=== PATIENT | female | born 1985 | race Caucasian/White ===

== ENCOUNTER 2025-05-11 11:53 | Emergency (ER) | payer OTHER, SELFPAY ==
--- OUTSIDE RECORDS SUMMARY | 2025-04-21 13:45 | XMS_ITS | Encounter Summary ---
[facility] Address [address] [place] [address] Care Team Providers Care Inorganic Chemist Name Role Phone Tushar Pierce APRN Primary Care Provider + Reason for Visit * Reason Comments Gynecologic Exam Encounter Details Date Type Department Care Team (Late st Contact Info) Description 04/21/2025 1:45 PM EDT Office Visit [facility] OBGYN [address] [place] [phone] Kindra Grijalva DYE HOUSE SUPERVISOR [address] [facility] [address] [place] [address] Encounter for gynecological examination with abnormal finding (Primary Dx); Vaginal odor; Screening for STDs (sexually transmitted diseases) Social History Tobacco Use Types Packs/Day Years Used Date Smoking Tobacco: Former Cigarettes 0.3 2.6 0 07/31/2002 - 07/31/2004 Passive Smoke Exposure: Past Smokeless Tobacco: Never Comments:Per Rachel, never Alcohol Use Standard Drinks/Week Comments Never 0 (1 standard drink = 0.6 oz pur e alcohol) AUDIT-C Answer Date Recorded Q1: How often do you have a drink containing alc ohol? Monthly or less 04/21/2024 Q2: How many drinks containi ng alcohol do you have on a typical day when you are drinking? 1 or 2 04/21/2024 Q3: How often do you have si x or more drinks on one occasion? Less than monthly 04/21/2024 PHQ-2 Answer Date Recorded Retired PHQ-9: Brief Depression Severity Measure Score 0 01/06/2023 Greer Depression Scale Answer Date Recorded Greer Depression Scale Total 9 04/02/2020 The thought of harming myself has occurred to me . Never 04/02/2020 Abuse Screen Answer Date Recorded Feels Unsafe at Home or Work/School no 04/21/2024 Feels Threatened by Someone no 04/01 Does Anyone Try to Keep You From Having Contact with Others or Doing Things Outside Your Home? no 04/21/2024 Physical Signs of Abuse Present no 04/21/2024 Housing Stability Answer Date Recorded Current Living Arrangements home 04/01 Potentially Unsafe Housing Conditions Not on suzan e 04/21/2024 Disabilities Answer Date Recorded Difficulty Concentrating, Remembering or Making Decisions no 04/21/2024 Difficulty Managing Errands Independently no 04/21/2024 PHQ-2 Answer Date Recorded Patient Health Questionnaire-2 Score 0 01/06/2025 Comments No Sex and Gender Information Value Date Recorded Sex Assigned at Female 01/05/2025 8:36 PM EDT Legal Sex Female 12:10 PM EDT Gender Identity Not on file Sexual Orientation Straight 01/05/2025 8 :36 PM EDT 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 Gynecologic Annual Exam Note Gynecologic Exam Subjective HPI Estephania Wilkinson is a 39 y.o. female who presents for annual well woman exam as a established patient. There were no changes to her medical or surgical history since her last visit.. No LMP recorded (lmp unknown). Patient has had an implant. Her periods are absent secondary to control. The flow is absent. She reports dysmenorrhea is mild occurring throughout cycle. Marital Status: . She is sexually active. She has not had new partners.. STD testing recommendations have been explained to the patient and she does desire STD testing. The patient would like to discuss the following complaints today: vaginal odor- denies other s/s of vaginitis; has tried OTC boric acid for 4 days, no changes with soaps/detergents/fragrances, symptoms resolved for approx 3-5 days and then returned, wants to discuss hysterectomy or BTL. Night sweatsfor approx. 2-3 years. Intermittent bilateral swelling and brown breast discharge around the time of monthly cycle that has been going on for approx 2-3 years. 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 Insertion date: mirena 05/04/2020 Desires to: discuss other contraception Thromboembolic Disease: none History of migraines: no Age of menarche: 13 History of STD: yes Trich while 2019 Last Pap : 01/06/23. Results: negative. HPV: unknown . 04/29/21 HPV Neg 01/09/23 cervical polyp Neg Last Completed Pap Smear Awaiting Completion PAP SMEAR (Every 3 Years) Order placed this encounter 04/21/2025 Order placed for LIQUID-BASED PAP SMEAR WITH HPV GENOTYPING REGARDLESS OF INTERPRETATION([facility]) by Kindra Grijalva APRN 01/06/2023 LIQUID-BASED PAP SMEAR, [facility] ([facility]) 04/02/2020 SCANNED - PAP SMEAR History of abnormal Pap smear: no Gardasil status:unsure if she received the vaccine Family history of uterine, colon, breast, or ovarian cancer: no Performs monthly Self-Breast Exam: yes Exercises Regularly:no Feelings of Anxiety or Depression: yes - anxiety and depression Tobacco Usage?: No Current Outpatient Medications: buPROPion XL (Wellbutrin XL) 150 MG 24 hr tablet, Take 1 tablet by mouth Daily., Disp: 30 tablet, Rfl: 5 hydrOXYzine (ATARAX) 25 MG tablet, Take 1 tablet by mouth 3 (Three) Times a Day As Needed for Anxiety., Disp: 60 tablet, Rfl: 5 levonorgestrel (Mirena, 52 MG,) 20 MCG/24HR IUD, 1 each by Intrauterine route 1 (One) Time., Disp: , Rfl: loratadine (CLARITIN) 10 MG tablet, Take 1 tablet by mouth Daily., Disp: 90 tablet, Rfl: 1 phentermine (Adipex-P) 37.5 MG tablet, Take 1 tablet by mouth Every Morning Before Breakfast., Disp: 30 tablet, Rfl: 2 promethazine (PHENERGAN) 25 MG suppository, Insert 1 suppository into the rectum Every 6 (Six) Hours As Needed for Nausea or Vomiting. Not with Reglan, Disp: 10 suppository, Rfl: 1 sertraline (ZOLOFT) 100 MG tablet, Take 1 tablet by mouth Every Night., Disp: 30 tablet, Rfl: 5 traZODone (DESYREL) 50 MG tablet, Take 1 tablet by mouth Every Night., Disp: 30 tablet, Rfl: 5 busPIRone (BUSPAR) 5 MG tablet, Take 1-2 tablets PO 2-3 times daily, Disp: 90 tablet, Rfl: 5 NON FORMULARY, Take 2 each by mouth Daily., Disp: , Rfl: Patient denies the need for medication refills today. OB History 2 Para 1 Term 1 0 AB 1 Living 1 SAB 1 IAB 0 Ectopic 0 Molar 0 Multiple 0 Live Births 1 Health Maintenance Topic Date Due Annual Gynecologic Pelvic and Breast Exam 04/03/2021 INFLUENZA VACCINE 02/28/2025 ANNUAL PHYSICAL 05/06/2025 LIPID PANEL 08/01/2025 PAP SMEAR 01/06/2026 TDAP/TD VACCINES (3 - Td or Tdap) 12/07/2033 HEPATITIS C SCREENING Completed Pneumococcal Vaccine 0-49 Aged Out HEMOGLOBIN A1C Discontinued Past Medical History: Diagnosis Date Abdominal pain LLQ-acute cramping pain; starts prior to menses; resolves at end of menses ADHD (attention deficit hyperactivity disorder) Anxiety Bronchitis Depression Dyslipidemia 02/04/202101/2021: HDL 32, LDL 102 Dysmenorrhea radiates to back and down legs Endometriosis has strong family h/o Gestational diabetes Hiatal hernia History of ear infections Irregular menses Kidney stone Menorrhagia Obesity Sinusitis Trichomonas vaginitis this Vaginal odor Past Surgical History: Procedure Laterality Date ANAL FISSURECTOMY 07/20/2020 SECTION N/A 03/19/2020 Procedure: SECTION PRIMARY; Surgeon: Erma Bowers MD; Location: [facility]; Service: Obstetrics/Gynecology; Laterality: N/A; CHOLECYSTECTOMY INTRAUTERINE DEVICE INSERTION 05/04/2020 WISDOM TOOTH EXTRACTION The additional following portions of the patient's history were reviewed and updated as appropriate: allergies, current medications, past family history, past medical history, past social history, past surgical history, and problem list. Review of Systems Constitutional: Negative. HENT: Negative. Eyes: Negative. Respiratory: Negative. Cardiovascular: Negative. Gastrointestinal: Negative. Endocrine: Positive for heat intolerance (night sweats). Genitourinary: Positive for breast discharge (bilateral breast swelling with intermittent brown discharge during time of cycle). Vagina odor Musculoskeletal: Negative. Skin: Negative. Allergic/Immunologic: Negative. Neurological: Negative. Hematological: Negative. Psychiatric/Behavioral: Negative. All other systems reviewed and are negative. I have reviewed and agree with the HPI, ROS, and historical information as entered above. Kindra Grijalva, DYE HOUSE SUPERVISOR Objective BP 110/64 Ht 165.1 cm (65 ) Wt 90.3 kg (199 lb) LMP (LMP Unknown) BMI 33.12 kg/m?? Physical Exam Vitals and nursing note reviewed. Exam conducted with a crimper assembler present. Constitutional: General: She is awake. She is not in acute distress. Appearance: Normal appearance. She is well-developed. She is not ill-appearing, toxic-appearing or diaphoretic. HENT: Head: Normocephalic and atraumatic. Mouth/Throat: Mouth: Mucous membranes are moist. Pulmonary: Effort: Pulmonary effort is normal. No tachypnea, respiratory distress or retractions. Chest: Chest wall: No mass. Breasts: Right: Normal. No mass, nipple discharge, skin change or tenderness. Left: Normal. No mass, nipple discharge, skin change or tenderness. Abdominal: General: There is no distension. Palpations: Abdomen is soft. Abdomen is not rigid. There is no mass. Tenderness: There is no abdominal tenderness. There is no guarding or rebound. Hernia: No hernia is present. Genitourinary: General: Normal vulva. Exam position: Lithotomy position. Labia: Right: No rash, tenderness or lesion. Left: No rash, tenderness or lesion. Vagina: Normal. No vaginal discharge or lesions. Cervix: Normal. No cervical motion tenderness, discharge, lesion or cervical bleeding. Uterus: Normal. Not enlarged, not fixed and not tender. Adnexa: Right adnexa normal and left adnexa normal. Right: No mass or tenderness. Left: No mass or tenderness. Rectum: Normal. No external hemorrhoid. Comments: Clear thin discharge Musculoskeletal: Cervical back: Normal range of motion. Lymphadenopathy: Upper Body: Right upper body: No axillary adenopathy. Left upper body: No axillary adenopathy. Skin: General: Skin is warm and dry. Neurological: Mental Status: She is alert and oriented to person, place, and time. Psychiatric: Attention and Perception: Attention normal. Mood and Affect: Mood normal. Speech: Speech normal. Behavior: Behavior normal. Behavior is cooperative. Thought Content: Thought content normal. Cognition and Memory: Cognition normal. Judgment: Judgment normal. Assessment and Plan Problem List Items Addressed This Visit None Visit Diagnoses Encounter for gynecological examination with abnormal finding - Primary Vaginal odor Relevant Orders LIQUID-BASED PAP SMEAR WITH HPV GENOTYPING REGARDLESS OF INTERPRETATION ([facility]) Screening for STDs (sexually transmitted diseases) Relevant Orders LIQUID-BASED PAP SMEAR WITH HPV GENOTYPING REGARDLESS OF INTERPRETATION ([facility]) MESS ATTENDANT CREW annual well woman exam. Reviewed pap guidelines. Pap today with std, bv, yeast testing due to complaints. Reviewed monthly self breast exams. Instructed to call with lumps, pain, or breast discharge. Reviewed BMI and weight loss as preventative health measures. Reviewed exercise as a preventative health measures. Smoking cessation encouraged. Resources reviewed. (See above for full cessation details). No breast abnormalities today-instructed pt to call when breast discharge/swelling occur and come in same day to be fully evaluated since it is not happening today. Patient desires tubal ligation-will follow up with Dr. Robinson Grijalva APRN 04/21/2025 documented in this encounter Plan of Treatment Upcoming Encounters Date Type Department Care Team (Late st Contact Info) Description 06/12/2025 1:15 PM EST Office Visit [facility] OBGYN [address] [phone] Tyree Song APRN [address] [place] [address] 07/02/2025 9:30 AM EST Office Visit [facility] PRIMARY [facility]ARE [address] [place] [address] Tushar Pierce, DYE HOUSE SUPERVISOR [address] [facility] [address] [place] [address] documented as of this encounter Procedures Procedure Name Priority Date/Time Associated Diagnosis Comments LIQUID-BASED PAP SMEAR WITH HPV GENOTYPING REGARDLESS OF INTERPRETATION, [facility] ([facility]) Routine 04/21/2025 6:12 PM EDT Vaginal odor Screening for STDs (sexually transmitted diseases) documented in this encounter Results * LIQUID-BASED PAP SMEAR WITH HPV GENOTYPING REGARDLESS OF INTERPRETATION ([facility]) (04/21/2025 6:12 PM EDT) Reference Lab Report FINAL MESS ATTENDANT CREW CYTOLOGY REPORT ---- DIAGNOSIS: Negative for intraepithelial lesion or malignancy Multiple factors can influence accuracy of Pap tests; therefore, screening at regular intervals is necessary for early cancer detection. ---- Adequacy SATISFACTORY FOR EVALUATION Transformation zone is present. Partially obscuring bacteria is present. Source CERVICAL/ENDOCERVI DELIO LMP None provided CLINICAL HISTORY: Routine Exam with abnormal finding, Vaginitis, IUD, Vaginal odor The pap smear is a screening test with limited sensitivity, and false negative tests results can occur. ThinPrep Pap imagined by [employer] (AI assisted system). Screened by KATHY WASHINGTON (ASCP) Neisseria Gonorrhoeae: Negative Chlamydia Trachomatis: Negative The Aptima Combo 2 assay is a target amplification nucleic acid probe test that utilizes target capture for the in vitro qualitative detection and differentiation of ribosomal RNA from Chlamydia trachomatis and Neisseria gonorrhoeae to aid in the diagnosis of chlamydial and gonococcal disease using the Power system. MDL ATOPOBIUM VAGINAE: Negative MDL BVAB2: Negative MDL CLEMENT ALBICANS: Negative MDL CLEMENT GLABRATA: Negative MDL CLEMENT PARAPSILOSIS: Negative MDL CLEMENT TROPICALIS: Negative MDL Megasphaera 1: Negative Aptima Trichomonas Vaginallis: Negative The Aptima Trichomonas vaginalis assay is an in vitro qualitative nucleic acid amplification test for the detection of ribosomal RNA to aid in the diagnosis of trichomoniasis. Aptima HPV: Negative The Aptima HPV assay is an in vitro nucleic acid amplification test for the qualitative detection of E6/E7 viral messenger RNA from 14 high risk types of HPV in cervical specimens. The high risk HPV types detected include: 16, 18, 31, 33, 35, 39, 45, 51, 52, 56, 58, 59, 66 68 04/22/2025 2:19 PM EDT [facility] ThinPrep Vial Collection / Unknown 04/21/2025 6:12 PM EDT 04/21/2025 6:12 PM EDT us Kindra Grijalva APRN PATHOLOGY/CYTOLOGY ORDERABLE S Final Result [facility]
[address] [place] [address], documented in this encounter Visit Diagnoses Diagnosis Encounter for gynecological examination with abnormal finding- Primary Vaginal odor Unspecified symptom associated with female genital organs Screening for STDs (sexually transmitted diseases) Screening examination for venereal disease documented in this encounter Additional Health Concerns Infection Onset Date Last Indicated Resolved Time Norovirus 2020 2020 documented as of this encounter Care Teams Inorganic Chemist Relationship Specialty Start Date End Date Tushar Pierce APRN [address] [facility] [address] [place] [address] PCP - General Family Medicine 09/03/24 documented as of this encounter
--- OUTSIDE RECORDS SUMMARY | 2025-05-01 11:30 | XMS_ITS | Encounter Summary ---
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 Social History Tobacco Use Types Packs/Day Years Used Date Smoking Tobacco: Former Cigarettes 0.3 2.6 0 07/31/2002 - 07/31/2004 Passive Smoke Exposure: Past Smokeless Tobacco: Never Tobacco Cessation:Counseling Given: Not Answered Comments:Per Rachel, never Alcohol Use Standard Drinks/Week [...] Brief Depression Severity Measure Score 0 01/06/2023 [place] Depression Scale Answer Date Recorded [place] Depression Scale Total 9 04/02/2020 The thought [...] Not on file Sexual Orientation Straight 01/05/2025 8: 36 PM EDT 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 Chief Complaint Patient presents with Gynecologic Exam Subjective HPI Estephania Wilkinson is a 39 y.o. female, , who presents for evaluation of odor with sexual intercourse. She does feel sore sometimes after intercourse.The discharge is none. Her symptoms have been present for 1 month(s). Additionally she has noticed no other symptoms. Pt had pap on 04/21/25 that was negative. States that symptoms feel similar to when she had ureaplasma in the past. Prior to the onset of symptoms she was not on antibiotics. She has not recently changed soaps/detergents/toilet tissue. Prior to this visit, she has used boric acid suppositories in an attempt to improve her symptoms. Sexual History She is currently sexually active. In the past year there has been NO new sexual partners. Condoms are never used. She would not like to be screened for STD's at today's exam. Current control method: IUD - Mirena. Menstrual History: No LMP recorded (lmp unknown). Patient has had an implant. In the past 6 months her cycles have been regular, predictable and occur monthly periods are absentsecondary to . Post-coital bleeding is absent. 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 History Last Pap : Last Completed Pap Smear Upcoming PAP SMEAR (Every 3 Years) Next due on 04/21/2028 04/21/2025 LIQUID-BASED PAP SMEAR WITH HPV GENOTYPING REGARDLESS OF INTERPRETATION ([facility]) 01/06/2023 LIQUID-BASED PAP SMEAR, [facility] ([facility]) 04/02/2020 SCANNED - PAP SMEAR OB History 2 Para 1 Term 1 0 AB 1 Living 1 SAB 1 IAB 0 Ectopic 0 Molar 0 Multiple 0 Live Births 1 The additional following portions of the patient's history were reviewed and updated as appropriate: allergies, current medications, past family history, past medical history, past social history, past surgical history, and problem list. Review of Systems Constitutional: Negative. Chills: vaginal odor. HENT: Negative. Eyes: Negative. Respiratory: Negative. Cardiovascular: Negative. Gastrointestinal: Negative. Endocrine: Negative. Genitourinary: Negative. Musculoskeletal: Negative. Skin: Negative. Allergic/Immunologic: Negative. Neurological: Negative. Hematological: Negative. Psychiatric/Behavioral: Negative. All other systems reviewed and are negative. I have reviewed and agree with the HPI, ROS, and historical information as entered above. Tyree Song, PIERCING MACHINE OPERATOR Objective BP 118/76 Wt 90.3 kg (199 lb) LMP (LMP Unknown) No BMI 33.12 kg/m?? Physical Exam Vitals and nursing note reviewed. Exam conducted with a lockstitch topstitcher present. Constitutional: Appearance: Normal appearance. Genitourinary: General: Normal vulva. Exam position: Lithotomy position. Labia: Right: No rash, tenderness or lesion. Left: No rash, tenderness or lesion. Vagina: Normal. No foreign body. No lesions. Cervix: Normal. No cervical motion tenderness, discharge, lesion or cervical bleeding. Uterus: Normal. Not enlarged, not fixed and not tender. Adnexa: Right adnexa normal and left adnexa normal. Right: No mass or tenderness. Left: No mass or tenderness. Rectum: Normal. No external hemorrhoid. 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 Relevant Medications doxycycline (MONODOX) 100 MG capsule NuSwab ordered Medication(s) ordered Counseling on Vaginitis provided Return PRN Tyree Song APRN 05/01/2025 documented in this encounter Plan of Treatment Upcoming Encounters Date Type Department Care Team (Late st Contact Info) Description 06/12/2025 1:15 PM EST Office Visit [facility] OBGYN [address] [phone] Tyree Song APRN [address] [facility] [address] [place] [id number] 07/02/2025 9:30 AM EST Office Visit [facility] PRIMARY [facility]ARE [address] [facility] [address] [place] [phone] Tushar Pierce APRN [address] [facility] [address] [place] [id number] documented as of this encounter Procedures Procedure Name Priority Date/Time Associated Diagnosis Comments GENITAL MYCOPLASMAS HANNA, SWAB Routine 05/01/2025 12:00 AM EDT Vaginal odor NUSWAB VG Routine 05/01/2025 12:00 AM EDT Vaginal odor documented in this encounter Results * (ABNORMAL) Genital Mycoplasmas HANNA, Swab - Swab, Endocervix, Vagina (05/01/2025 12:00 AM EDT) Mycoplasma genitalium NA Negative Negative [facility] Mycoplasma hominis Negative Negative [facility] Ureaplasma spp Positive(A) Negative [facility] Swab Combined specimen of cytologic material from endocervix, ectocervix, and vaginal fornix / Unknown 05/01/2025 05/01/2025 Comment:Swab Release to lei Gross [facility] - 05/04/2025 3:35 AM EDT Test(s) 666790-Gjdwewbsah hominis HANNA; 232334-Mhwkeanzmg spp HANNA was developed and its performance characteristics determined by [facility]. It has not been cleared or approved by the Food and Drug Administration. Performed at: - [address] [id number] Flat Surfacer: Carol Malloy MD, Phone: [phone] Tyree Song PIERCING MACHINE OPERATOR MICROBIOLOGY - GENER AL ORDERABLES Final Result [facility] (AMBULATORY) [address] [place] [address], [facility] [address] [place] [address], * NuSwab Vaginitis (VG) - Swab, Vagina (05/01/2025 12:00 AM EDT) Atopobium Vaginae Low - 0 Score [facility] BVAB 2 Low - 0 Score [facility] Megasphaera 1 Low - 0 Score [facility] Comment: Calculate total score by adding the 3 individual bacterial vaginosis (BV) marker scores together. Total score is interpreted as follows: Total score 0-1: Indicates the absence of BV. Total score 2: Indeterminate for BV. Additional clinical data should be evaluated to establish a diagnosis. Total score 3-6: Indicates the presence of BV. Laurie Albicans, HANNA Negative Negative [facility] Laurie Glabrata, HANNA Negative Negative [facility] Trichomonas vaginosis Negative Negative [facility] Swab Vaginal structure / Unknown 05/01/2025 05/01/2025 Comment:Swab Release to lei Gross [facility] (AMBUL[facility]) - 05/04/2025 3:35 AM EDT Test(s) 495253- Atopobium vaginae; 293844- BVAB 2; 375460- Megasphaera 1 was developed and its performance characteristics determined by [facility]. It has not been cleared or approved by the Food and Drug Administration. Test(s) 486647-Squxzdm albicans, HANNA; 833530-Zfxbyjh glabrata, HANNA was developed and its performance characteristics determined by [facility]. It has not been cleared or approved by the Food and Drug Administration. 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
[2025-05-11 11:59] VITALS: BP 122/79; PULSE 85; RESP 15; TEMP 36.9; O2SAT 98; BMI 32.3
--- NOTE | 2025-05-11 12:04 | ED_ITS ---
<Statement entered by Ghazala Cleveland DO - 05/11/25 16:01> I was consulted by the RAFA, and we discussed the complexity of problems being addressed. I approved the treatment plan and management plan of this patient's care in the emergency department, thus performing a substantive portion of medical decision making. Ghazala Cleveland DO Discharge Plan Disposition Patient Disposition: Home, Self-Care Prescriptions Prescriptions: New prednisone 20 mg tablet 40 mg PO DAILY 5 Days Qty: 10 0RF No Action buspirone 5 mg tablet 5 mg PO TID trazodone 50 mg tablet 50 mg PO DAILY sertraline 100 mg tablet 100 mg PO DAILY phentermine [Adipex-P] 37.5 mg tablet 37.5 mg PO DAILY Rx Instructions: must administer 30 minutes before or 1-2 hours after breakfast hydroxyzine HCl 25 mg tablet 25 mg PO TID PRN loratadine [Claritin] 10 mg tablet 10 mg PO DAILY bupropion HCl [Wellbutrin XL] 150 mg tablet extended release 24 hr 150 mg PO DAILY triamcinolone acetonide 0.1 % cream 1 applic topical TID 7 Days Qty: 15 0RF mupirocin calcium 2 % cream 1 applic topical TID Qty: 15 0RF Referrals Follow up/Referrals: Tushar Pierce APRN [Primary Care Provider, Medical] - See instructions Activity Restrictions/Add. Instructions Additional Instructions/Restrictions: Today you were evaluated in the emergency department and diagnosed with an allergic rash. Please take the prednisone with food, take it in the morning. Follow-up with your PCP within 48 hours. Return to the ED for any worsening of condition. Clinical Impressions Clinical Impression: Plant allergic contact dermatitis Instructions Patient Instructions: Contact Dermatitis Print Language Print Language: Urdu Discharge ED Provider: Ghazala Cleveland General Adult HPI General Chief complaint: Skin/Abscess/Foreign Body Stated complaint: Rash all over body. Time Seen by Provider: 05/11/25 12:02 Mode of Arrival: Ambulatory Source of Information: Patient Description of Symptoms (Recalled from ER Triage Doc. by RN): rash through out body. has a blistered area to r wrist with a dark center. pt states she was doing yard work on monday and it started. went to [facility] and has had no improvement. History of Present Illness HPI narrative: Patient is a 39-year-old female with no significant PMHx who presents to the ED for a rash since Monday. Patient states on Monday she was working out in her yard, clearing leaves and weeds, the following day developed a vesicular, pruritic rash. Related Data Home Medications ?Medication ?Instructions ?Recorded ?Confirmed bupropion HCl 150 mg 24 hr tablet, 150 mg PO DAILY 04/2405/08/25 extended release (Wellbutrin XL) buspirone 5 mg tablet 5 mg PO TID 05/08/25 5 hydroxyzine HCl 25 mg tablet 25 mg PO TID PRN 05/08/25 05/08/25 loratadine 10 mg tablet (Claritin) 10 mg PO DAILY 04/2405/08/25 phentermine 37.5 mg tablet 37.5 mg PO DAILY 05/08/25 1 (Adipex-P) sertraline 100 mg tablet 100 mg PO DAILY 05/08/2504/24 trazodone 50 mg tablet 50 mg PO DAILY 05/08/2504/24 Previous Rx's ?Medication ?Instructions ?Recorded mupirocin calcium 2 % topical cream 1 applic topical T ID #15 grams 05/08/25 triamcinolone acetonide 0.1 % 1 applic topical TID 7 d ays #15 05/08/25 topical cream grams prednisone 20 mg tablet 40 mg (2 x 20 mg) PO DAILY 5 days 05/11/25 #10 tabs Allergies Allergy/AdvReac Type Severity Reaction Status Date / Time clarithromycin (From Biaxin) Allergy Mild Hives Verified 05/08/25 10:46 [facility] Disclaimer: The information contained in this section may have been updated after the patient was seen, as this information can be updated by other users. Social History (Updated 05/08/25 @ 13:04 by Francoise Joel APRN) Smoking Status: Never smoker alcohol intake: current alcohol intake frequency: holidays/special occasions only current occupational status: previously employed Travel in the last 8 weeks?: None Have you lived/traveled outside US in past 30 days?: No Contact w/someone who lives/traveled outside US past 30 days?: No Exposure to someone with infectious disease in past 14 days?: No Do you have a fever (greater than 100.4 F or 38 C)?: No Have you tested positive for COVID-19?: No Exposed to someone with COVID-19 in past 14 days?: No Do you have a sore throat?: No Do you have a cough?: No Do you have any weakness?: No Do you have any diarrhea?: No Are you experiencing any unusual bleeding?: No Do you have any muscle aches/pain?: No Do you have any abdominal pain?: No Are you experiencing loss of taste or smell?: No ROS Obtained: Yes Systems reviewed as appropriate & no additional complaints except as documented Physical Exam General General appearance: alert Head Head exam: atraumatic Eye Eye exam: Present PERRL and EOMI Neck Neck exam: Present full ROM Respiratory Respiratory exam: Present normal lung sounds bilaterally Cardiovascular Cardiovascular exam: Present regular rate Neurological Exam Neurological exam: Present alert and oriented X3 Skin Skin exam: Present other (vesicular rash, erythema, located on right arm, left arm, chest wall, left cheek. Area on R arm is weeping from vesicles ) Medical Decision Making Medical Records Screening: Per USPSTF and CDC recommendations, given the prevalence of disease in our region, it is our hospital?s policy to screen for HIV and viral Hepatitis for all patients aged 18 and over and those with ongoing risk factors. Gilberto Inquiry Pt receiving controlled substance: No Vital Signs: 05/11/25 11:59 05/11/25 12:31 Temperature 98.4 F 98.4 F Temperature Source Oral Pulse Rate 81 Pulse Rate [Right] 85 Respiratory Rate 15 15 Blood Pressure 129/77 Blood Pressure [Right Arm] 122/79 Blood Pressure Mean [Right Arm] 93 02 Sat by Pulse Oximetry 98 Oxygen Delivery Method Room Air Orders (Tests/Meds): ED MEDICATIONS Discontinued Medications Generic Name Dose Route Start Last Admin Trade Name Freq PRN Reason Stop Dose Admin Dexamethasone Sodium Phosphate 10 mg 05/11/25 12:09 05/11/25 12:17 Dexamethasone 4mg/Ml 1ml Vial IM 05/11/25 12:10 10 mg ONCE ONE Administration Medical Decision Narrative: In summary, patient is a 39-year-old female with no significant PMHx who presents to the ED for a rash since Monday. Patient states on Monday she was working out in her yard, clearing leaves and weeds, the following day developed a vesicular, pruritic rash. She has tried bleach baths, Benadryl without any relief. Patient states that she has had poison alejandra in the past and this feels similar. No additional complaints. Upon initial evaluation patient is alert, oriented and cooperative. She is hemodynamically stable. Physical exam remarkable for vesicular, erythematous rash on her right arm, left arm, chest wall, left cheek. The area on her right arm is weeping from the vesicles. Differential diagnoses include plant contact dermatitis, other dermatitis, infectious process, other rash. Discussed with patient that we will administer steroid injection and place her on prednisone tablets that she will start tomorrow. Advised her to take the prednisone in the morning with food. Discussed to continue any [id number] Benadryl, Benadryl cream as directed. Advised her to follow-up with her PCP next week. We discussed return precautions to the ED and patient verbalized understanding. Critical Care Critical Care Time Critical Care Time: No
--- OUTSIDE RECORDS SUMMARY | 2025-05-11 12:04 | XMS_ITS | Clinical Summary ---
Author Organization [facility] Address [address] [place] [address] Phone Care Team Providers Care Supervisor Coil Winding Name Role Phone Ayan Mcconnell APRN Primary Care Physician [phone] Conditions or Problems Problem Name Problem Code Onset Date Status Entry Date Provider Comment Standard Description Annotate Body mass index (BMI) 32.0-32.9; adult Z68.32 (ICD-10-CM ) 09/27 Active 09/27 Tamia Avendano MD Body mass index [BMI] 32.0-32.9, adult Body mass index (BMI) 32.0-32.9; adult Z68.32 (ICD-10-CM ) 09/27 Correction 09/27 Tamia Avendano MD Body mass index [BMI] 32.0-32.9, adult Body mass index (BMI) 32.0-32.9; adult Z68.32 (ICD-10-CM ) 09/27 Removed 09/27 Janette Nickerson CARDIAC MONITOR TECHNICIAN Body mass index [BMI] 32.0-32.9, adult Body mass index (BMI) 34.0-34.9; adult Z68.34 (ICD-10-CM ) 12/07 Correction 12/07 Janette Nickerson CARDIAC MONITOR TECHNICIAN Body mass index [BMI] 34.0-34.9, adult Exposure to COVID-19 coronavirus 399962164 (SNOMED CT) 09/27 Active 09/27 Janette Nickerson CARDIAC MONITOR TECHNICIAN Exposure to communicable disease URI - acute 28560689 (SNOMED CT) 09/27 Active 09/27 Janette Nickerson CARDIAC MONITOR TECHNICIAN Acute upper respiratory infection Body mass index (BMI) 34.0-34.9; adult Z68.34 (ICD-10-CM ) 12/07 Removed 12/07 Cristina Mahmood APRN Body mass index [BMI] 34.0-34.9, adult Counseling for nutrition Z71.3 (ICD-10-CM ) 12/07 Inactive 12/07 Cristina Mahmood APRN Dietary counseling and surveillance Body mass index (BMI) 35.0-35.9; adult Z68.35 (ICD-10-CM ) Correction Cristina Mahmood APRN Body mass index [BMI] 35.0-35.9, adult Pharyngitis 550094810 (SNOMED CT) 12/07 Active 12/07 Cristina Mahmood APRN Pharyngitis Counseling for nutrition Z71.3 (ICD-10-CM ) Inactive Ayan Mcconnell APRN Dietary counseling and surveillance Body mass index (BMI) 35.0-35.9; adult Z68.35 (ICD-10-CM ) Removed Ayan Mcconnell APRN Body mass index [BMI] 35.0-35.9, adult Gastroenteri tis acute 51094073 (SNOMED CT) Active Ayan Mcconnell APRN Gastroenteritis Headache 76608981 (SNOMED CT) Active Ayan Mcconnell APRN Headache Medications Medication Instructions Start Date Stop Date Generic Name ND Provider GUAIFENESIN 400 MG TABS Take 1 tablet by mouth three times a day as needed for congestion, headache. guaifenesin [id number] Tamia Avendano MD SUDOGEST 12 HOUR 120 MG [id number] Take 1 tablet by mouth twice a day as needed for congestion. pseudoephedrine hcl [id number] Tamia Avendano MD PROMETHAZINE-DM 6.25-15 MG/5ML SYRP Take 5 ml by mouth every six hours as needed promethazine-dm [id number] Tamia Avendano MD Promethazine VC 6.25-5 mg/5 mL syrup Take 5 ml by mouth twice a day as needed promethazine-pheny lephrine 34450802311 Cristina Mahmood APRN ZITHROMAX 250 MG TABS take 2 tablets by mouth on first day, then one by mouth daily for 4 days. azithromycin 56607595019 Cristina Mahmood APRN LORATADINE 10 MG TABS TAKE 1 TABLET BY MOUTH EVERY DAY loratadine [id number] Cristina Mahmood SANDEE Promethazine VC 6.25-5 mg/5 mL syrup Take 5 ml by mouth twice a day as needed promethazine-pheny lephrine 06241232547 Cristina Mahmood APRN ZITHROMAX 250 MG TABS take 2 tablets by mouth on first day, then one by mouth daily for 4 days. azithromycin 38572793650 Cristina Mahmood APRN LOESTRIN FE 1.5/30 1.5-30 MG-MCG TABS Take 1 tablet by mouth once a day norethindrone-e.es tradiol-iron [id number] Laurel Mendes MA PAXIL 20 MG TABS paroxetine hcl [id number] Laurel Mendes MA ZOFRAN 8 MG ORAL TABLET 1 tablet every 8 hrs as needed for nausea or vomiting. ONDANSETRON HCL [id number] Ayan Mcconnell APRN LOESTRIN FE 1.5/30 1.5-30 MG-MCG TABS TAKE 1 TABLET BY MOUTH ONCE A DAY NORETHIN VIVIANA-ETH ESTRAD-FE [id number] Ayan Mcconnell APRN PAXIL 20 MG TABS PAROXETINE HCL [id number] Ayan Mcconnell APRN Medications Administered No information available. Allergies, Adverse Reactions, Alerts Allergy Name Reaction Description Start Date Severity Statu s Provider BIAXIN Critical Active Cristina wellington APRN LATEX Critical No Longer Active Cristina Mahmood APRN LATEX Critical No Longer Active Ayan Mcconnell BATH ATTENDANT Results Date Name Value Unit Range Flag Description Office Visit: [facility] CONGES TION RM 2 READY LABS ORDERED Strep Screen 30091 Laboratory tests ordered RAPID STREP negative Streptoc occus pyogenes DNA [Presence] in Throat by HANNA with probe detection Plan of Care Type Date Detail Pending order Patient Pay- COV ID-19 Pending order Strep Screen 878 80 Patient education Patient Educat ion Given Patient education Patient Educat ion Given Procedures Code Procedure Name Date Entry Date [facility]-[id number] Medication Reconciliation CPT-1159F Medication list docu mented in medical record CPT-1160F Review of all medica tions by a prescribing practitioner [id number] Giving encouragement to exercise [facility] [address]16 Patient Pay- COVID-19 09/27 [id number] Medication Reconciliation CPT-3075F Most recent systolic blood pressure 130-139 mm Hg CPT-3078F Most recent diastoli c blood pressure <80 mm Hg CPT-1159F Medication list docu mented in medical record CPT-1160F Review of all medica tions by a prescribing practitioner CPT-65721 Strep Screen [id number] 0 SCT-[id number] Medication Reconciliation CPT-3074F Most recent systolic blood pressure <130 mm Hg CPT-3078F Most recent diastoli c blood pressure <80 mm Hg [id number] 340B Toradol 15mg/ml Injection Inj Order Injection(s) Ordered [id number] 340B Phenergan to 50mg Injection [id number] 340B Toradol 15mg/ml Injection Vital Signs Date Name Value Unit Description BMI (Body Mass Index) 32.40 kg/m2 Bod y Mass Index (Ratio) Body Temperature 98.3 [degF] temperat ure E&M Body Temperature 36.83 Xiomara temperat ure in centigrade E&M BSA (Body Surface Area) 2.06 b alyse surface area Heart Rate 100 /min pulse rate Height 66 [in_us] height E&M Height 167.64 cm height in cent imeters E&M Weight Measured 90.91 kg weight in kilograms E&M Weight Measured 200 [lb_av] weight E& M Weight Measured 200 [lb_av] weight E& M BP Diastolic 79 mm[Hg] blood pressu re, diastolic BP Systolic 136 mm[Hg] blood pressur e, systolic Respiratory Rate 18 /min respirat ory rate E&M Immunizations No information available. Advance Directives No information available.
--- OUTSIDE RECORDS SUMMARY | 2025-05-11 12:05 | XMS_ITS | Encounter Summary ---
[facility] Address [address] [place] [address] Care Team Providers Care Wrecking Crane Engine Operator Name Role Phone Tushar Pierce APRN Primary Care Provider + Reason for Visit * Reason Comments Med Refill Encounter Details Date Type Department Care Team (Late st Contact Info) Description 11/27/2018 Refill [facility] GASTROENTEROLOGY [address] [facility] [address] [place] [address] Radames Rodriguez MD [address] [facility] [address] [place] [address] Heartburn; Gastroesophageal reflux disease, esophagitis presence not specified Social History Tobacco Use Types Packs/Day Years Used Date Smoking Tobacco: Former Smokeless Tobacco: Never Alcohol Use Standard Drinks/Week Comments No 0 (1 standard drink = 0.6 oz pur e alcohol) Comments Unknown Sex and Gender Information Value Date Recorded Sex Assigned at Female 01/05/2025 8:36 PM EDT Legal Sex Female 12:10 PM EDT Gender Identity Not on file Sexual Orientation Straight 01/05/2025 8: 36 PM EDT documented as of this encounter Plan of Treatment Upcoming Encounters Date Type Department Care Team (Late st Contact Info) Description 06/12/2025 1:15 PM EST Office Visit [facility] OBGYN [address] [facility] [address] [place] [id number] Tyree Song APRN [address] [facility] [address] [place] [address] 07/02/2025 9:30 AM EST Office Visit [facility] PRIMARY CARE [address] [place] [phone] Tushar Pierce, LITERACY SPECIALIST [address] [facility] [address] [place] [address] documented as of this encounter Visit Diagnoses Diagnosis Heartburn Gastroesophageal reflux disease, esophagitis presence not specified documented in this encounter Additional Health Concerns Infection Onset Date Last Indicated Resolved Time COVID (rule out) 01/14/2020 01/14/2020 01/21/2020 9:08 PM EDT COVID (rule out) 09/22/2020 09/23/2020 09/24/2020 7:52 AM EST C.difficile (rule out) 09/25/2020 09/25/202009/30 9:10 PM EST COVID Screen (preop/placement) 2020 2020 2020 6:21 AM EDT C.difficile (rule out) 2020 12/29/202012/29 3:48 PM EDT Norovirus 2020 2020 COVID (rule out) 05/18/2021 05/18/2021 05/25/2021 9:08 PM EDT documented as of this encounter Care Teams Wrecking Crane Engine Operator Relationship Specialty Start Date End Date Tushar Pierce, LITERACY SPECIALIST [address] [facility] [address] [place] [address] PCP - General Family Medicine 09/03/24 documented as of this encounter
--- OUTSIDE RECORDS SUMMARY | 2025-05-11 12:05 | XMS_ITS | Referral Summary ---
Author Organization [facility] ([place], [place], [place], [place]) Address [address] [place] [address] Care Team Providers Care Optics Test Technician Name Role Phone Unavailable Primary Care Provider Unavailabl e Allergies Active Allergy Reactions Criticality Noted Date Comments Clarithromycin Hives High 11/04/2017 Medications hydrOXYzine (ATARAX) 25 MG tablet Take 1 tablet (25 mg total) by mouth 3 (three) times daily. Active loratadine (CLARITIN) 10 mg tablet Take 1 tablet (10 mg total) by mouth daily. 01/02/2024 Active sertraline (ZOLOFT) 100 MG tablet Take 1 tablet (100 mg total) by mouth daily. Active traZODone (DESYREL) 50 MG tablet Take 1 tablet (50 mg total) by mouth nightly. 09/26/2023 Active Active Problems No known active problems Social History Tobacco Use Types Packs/Day Years Used Date Smoking Tobacco: Never Smokeless Tobacco: Never Tobacco Cessation:Counseling Given: Not Answered Alcohol Use Standard Drinks/Week Comments Never 0 (1 standard drink = 0.6 oz pur e alcohol) Food Insecurity Answer Date Recorded Food run out past 12 months Not on file 03/31 Food did not last past 12 months Not on file 04/18/2024 Employment Answer Date Recorded Help finding and keeping a job Not on file 0 04/18/2024 Family and Community Support Answer Alejandro e Recorded Help with Day to Day Activities Not on file 04/18/2024 Feeling Lonely or Isolated Not on file 04/18 Educational Attainment Answer Date Silvio rded Speak language other than Tajik at home Not on file 04/18/2024 Want help with school or training Not on file 04/18/2024 Substance Use Answer Date Recorded Used prescription meds for non-medical reasons N ot on file 04/18/2024 Used illegal drugs past 12 months Not on file 04/18/2024 Comments Unknown Sex and Gender Information Value Date Recorded Sex Assigned at Female 01/25/2022 8:16 PM CDT Legal Sex Female 8:16 PM CDT Gender Identity Female 01/25/2022 8:16 PM CDT Sexual Orientation Not on file Last Filed Vital Signs Vital Sign Reading Time Taken Comments Blood Pressure 103/55 04/19/2024 6:33 PM EDT Pulse 84 04/19/2024 6:33 PM EDT Temperature 36.9 C (98.5 F) 04/19/2024 2:37 PM EDT Respiratory Rate 18 04/19/2024 6:33 PM EDT Oxygen Saturation 98% 04/19/2024 6:33 PM EDT Inhaled Oxygen Concentration - - Weight 88.5 kg (195 lb) 04/19/2024 2:37 PM EDT Height 167.6 cm (5' 6 ) 04/19/2024 2:37 PM EDT Body Mass Index 31.47 04/19/2024 2:37 PM EDT Plan of Treatment Not on file Insurance [facility]
--- OUTSIDE RECORDS SUMMARY | 2025-05-11 12:05 | XMS_ITS | Clinical Summary ---
Author Organization [facility] ([place], [place], [place], [place]) Address [address] [place] [address] Care Team Providers Care Boat Tender Name Role Phone Unavailable Primary Care Provider [...] 0 04/18/2024 Family and Community Support Answer Alejandor e Recorded Help with Day to Day Activities Not on file 04/18/2024 Feeling Lonely or Isolated Not on file 04/18 Educational Attainment Answer Date Silvio rded Speak language other than Faroese at home Not on file 04/18/2024 Want [...] 04/19/2024 2:37 PM EDT Plan of Treatment Health Maintenance Due Date Last Done Comments Depression Screening (12+) 1999 HIV Screening 12/28/2002 Hepatitis C Screening 12/28/2005 Pap Smear 12/28/2008 COVID-19 VACCINE ( - 2023-2 5 season) 2025 Influenza Vaccine (#1) 2025 Tobacco Cessation Counseling and Screening (12+) 04/19/2025 04/19/2024 Lipid Panel 01/10/2027 01/11/2024 DTAP/TDAP/TD VACCINES (3 - T d or Tdap) 12/07/2033 12/08/2023, 02/03/2021 Pneumococcal Vaccine: 0-49 Years Aged Out No longer eligible b ased on patient's age to complete this topic Insurance [employer] [place]
--- OUTSIDE RECORDS SUMMARY | 2025-05-11 12:05 | XMS_ITS | Clinical Summary ---
Author Organization [facility] Address [address] [place] [address] Care Team Providers Care Mail Distribution Clerk Name Role Phone Tushar Pierce APRN Primary Care Provider + Allergies Active Allergy Reactions Criticality Noted Date Comments Clarithromycin Hives Medium 11/04/2017 Medications levonorgestrel (Mirena, 52 MG,) 20 MCG/24HR IUD 1 each by Intrauterine route 1 (One) Time. Active promethazine (PHENERGAN) 25 MG suppositoryIndica tions:Nausea and vomiting, unspecified vomiting type Insert 1 suppository into the rectum Every 6 (Six) Hours As Needed for Nausea or Vomiting. Not with Reglan 10 suppository 1 024 Active hydrOXYzine (ATARAX) 25 MG tabletIndications :KELLEY (generalized anxiety disorder) Take 1 tablet by mouth 3 (Three) Times a Day As Needed for Anxiety. 60 tablet 5 025 Active busPIRone (BUSPAR) 5 MG tabletIndications :KELLEY (generalized anxiety disorder) Take 1-2 tablets PO 2-3 times daily 90 tablet 5 025 Active phentermine (Adipex-P) 37.5 MG tabletIndications :Class 1 obesity due to excess calories without serious comorbidity with body mass index (BMI) of 31.0 to 31.9 in adult Take 1 tablet by mouth Every Morning Before Breakfast. 30 tablet 2 025 Active buPROPion XL (Wellbutrin XL) 150 MG 24 hr tabletIndications :Moderate episode of recurrent major depressive disorder Take 1 tablet by mouth Daily. 30 tablet 5 025 Active loratadine (CLARITIN) 10 MG tabletIndications :Seasonal allergies Take 1 tablet by mouth Daily. 90 tablet 1 025 Active sertraline (ZOLOFT) 100 MG tabletIndications :Recurrent major depressive disorder, in partial remission Take 1 tablet by mouth Every Night. 30 tablet 5 025 Active traZODone (DESYREL) 50 MG tabletIndications :Recurrent major depressive disorder, in partial remission Take 1 tablet by mouth Every Night. 30 tablet 5 025 Active NON FORMULARY Take 2 each by mouth Daily. 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 One refill for expedited partner treatment 14 capsule 1 025 Active metoclopramide (Reglan) 10 MG tabletIndications :Nausea and vomiting, unspecified vomiting type Take 1 tablet by mouth 4 (Four) Times a Day Before Meals & at Bedtime. Choose betw Reglan vs Zofran 30 tablet 1 024 2024 Discontin ued(Histo rical Med - Therapy completed ) ondansetron ODT (ZOFRAN-ODT) 8 MG disintegrating tabletIndications :Nausea and vomiting, unspecified vomiting type Place 1 tablet on the tongue Every 8 (Eight) Hours As Needed for Nausea or Vomiting. 30 tablet 1 025 2024 Discontin ued(Histo rical Med - Therapy completed ) Active Problems Problem Noted Date Diagnosed Date Gastroesophageal reflux disease 01/12/2024 Night sweats 01/12/2024 Enteritis, enteropathogenic E. coli 01/12/2024 Endometrial polyp 01/06/2023 Other headache syndrome 05/18/2021 Mixed hyperlipidemia 02/04/2021 Overview (02/04/2021): 01/2021: HDL 32, LDL 102 KELLEY (generalized anxiety disorder) 02/03/2021 Marijuana smoker, episodic 01/06/2021 History of gestational diabetes 01/06/2021 Obesity (BMI 30.0-34.9) 01/06/2021 Pilonidal cyst without abscess 2020 E coli bacteremia 09/25/2020 Hypokalemia 09/23/2020 Recurrent major depressive disorder, in partial remission 09/23/2020 History of pyelonephritis 09/23/2020 Previous section 03/22/2020 Family history of congenital anomaly 11/26/2019 Kidney stone 11/16/2019 Sinusitis Overview (05/18/2021): Patient has had congestion and headache with soreness discomfort over the frontal maxillary sinuses she has had a low-grade fever currently afebrile she denies blood drainage from nose or throat. The patient's current illness began approximately 1 week ago with a intermittent headache and now it is steady and she is taken several yomn-hqy-hpjnwvh medications with no relief does complain of a sore throat in addition to the pressure discomfort in the frontal and maxillary sinus areas Assessment & Plan (05/18/2021 6:22 PM EDT): Frontal and maxillary sinus discomfort currently afebrile at 98.4, with previous headache for the past week and sore throat and left ear discomfort COVID-19 screening PCR test is performed Note the rapid Covid test was negative on May 17 and this day May 18 We will treat with Z-Gabe prescription sent. Resolved Problems Problem Noted Date Diagnosed Date Resolved Date Intractable nausea and vomiting 04/21/2024 05/06/2024 Viral upper respiratory tract infection 05/18/2021 10/18/2022 Overview (05/18/2021): Patient is a headache for approximately 1 week initially intermittent but now steady with little relief with ufvf-bvc-ytfsgby medications in addition she complains of mild sore throat low-grade fever and some soreness fullness in the left ear with a maximum fever of 100.9 complaining of general body aches, she has had negative rapid Covid testing on May 17 and May 18 this day COVID-19 PCR test is performed The patient does have some soreness over the frontal and maxillary sinuses I see no obvious infection of the ear oropharynx We will treat with Z-Gabe Assessment & Plan (05/18/2021 6:24 PM EDT): Upper respiratory tract infection with associated sinusitis COVID-19 PCR test is pending We will initiate therapy with Z-Gabe Nausea vomiting and diarrhea 2020 01/06/2021 Gastroenteritis due to norovirus 2020 05/28/2021 Sepsis 09/23/2020 09/26/2020 Lactating mother 09/23/2020 01/06/2021 Intractable vomiting 09/23/2020 021 E. coli UTI (urinary tract infection) 09/23/2020 01/06/2021 Elevated glucose 09/23/2020 01/06/2021 Currently 02/26/2020 0 Single umbilical artery affe cting management of mother in [place] , antepartum 11/26/2019 03/19/2020 11/26/2019 03/19/2020 hydronephrosis in preg heather, antepartum condition 11/26/2019 03/19/2020 Kidney stone complicating pr egnancy, second trimester 11/15/2019 03/19/2020 Encounters Date Type Department Care Team Description 05/05/2025 Results Follow-Up [facility] [address] [facility] [address] [place] [phone] Tyree Song APRN 05/01/2025 11:30 AM EDT Office Visit [facility] [address] [facility] [address] [place] [phone] Tyree Song APRN Vaginal odor (Primary Dx); 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 05/01/2025 Travel 04/30/2025 Telephone [facility] [address] [facility] [address] [place] [address] Erma Bowers MD Ureaplasma spp 04/25/2025 Results Follow-Up [facility] [address] [facility] [address] [place] [address] Kindra Grijalva, COMMERCIAL CREDIT REVIEWER 04/21/2025 1:45 PM EDT Office Visit [facility] [address] [place] [address] Kindra Grijalva APRN Encounter for gynecological examination with abnormal finding (Primary Dx); Vaginal odor; Screening for STDs (sexually transmitted diseases) 04/21/2025 Travel 04/18/2025 Telephone [facility] [address] [place] [address] Kindra Grijalva APRN [facility]- MEDICAL CONCERN 02/16/2025 Refill [facility] [address] [place] [address] Kalin Yuan MD from Last 3 Months Immunizations Immunization Administration Dates Next Due Tdap 12/08/2023,02/03/2021 Family History Medical History Relation Name Comments Diabetes Father Maximilina Edson Heart attack Father Maximilian Edson Hyperlipidemia Father Maximilian Edson Hypertension Father Maximilian Edson Kidney disease Father Maximilian Edson Obesity Father Maximilian Edson Drug abuse Maternal Grandfather Drug abuse Maternal Grandmother Arthritis Mother Sylvia Gonzalez Diabetes Mother Sylvia Gonzalez Diverticulitis Mother Sylvia Gonzalez Heart attack Mother Sylvia Gonzalez Migraines Mother Sylvia Gonzalez Obesity Mother Sylvia Gonzalez Breast cancer Other family hx Deep vein thrombosis Other family hx sister age 26 on OCs Diabetes Other family hx Endometriosis Other family hx strong family hx Hypertension Other family hx Lung cancer Other family hx Stroke Other family hx Drug abuse Paternal Grandfather Heart attack Paternal Grandfather Obesity Paternal Grandfather Drug abuse Paternal Grandmother Nohemy Edson Heart attack Paternal Grandmother Nohemy Edson Kidney disease Paternal Grandmother Nohemy Edson Osteoporosis Paternal Grandmother Nohemy Edson Relation Name Status Comments Father Maximilian Edson Maternal Grandfather Maternal Grandmother Mother Sylvia Gonzalez Other family hx Paternal Grandfather Paternal Grandmother Nohemy Edson Social History Tobacco Use Types Packs/Day Years [...] Brief Depression Severity Measure Score 0 01/06/2023 [place] Depression Scale Answer Date Recorded [place] Depression Scale Total 9 04/02/2020 The thought [...] 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 Not on file Not on file Last Filed Vital Signs Vital Sign Reading Time Taken Comments Blood Pressure 118/76 05/01/2025 11:40 AM EDT Pulse 76 01/06/2025 11:21 AM EDT Temperature 36.4 C (97.5 F) 01/06/2025 11:21 AM EDT Respiratory Rate 18 04/26/2024 8:54 PM EDT Oxygen Saturation 98% 01/06/2025 11:21 AM EDT Inhaled Oxygen Concentration - - Weight 90.3 kg (199 lb) 05/01/2025 11:40 AM EDT Height 165.1 cm (5' 5 ) 04/21/2025 2:27 PM EDT Body Mass Index 33.12 04/21/2025 2:27 PM EDT Plan of Treatment Upcoming Encounters Date Type Department Care Team (Late st Contact Info) Description 06/12/2025 1:15 PM EST Office Visit [facility] [address] [facility] [address] [place] [address] Tyree Song, COMMERCIAL CREDIT REVIEWER [address] [place] [address] 07/02/2025 9:30 AM EST Office Visit [facility] [address] [place] [phone] Tushar Pierce, COMMERCIAL CREDIT REVIEWER [address] [place] [address] Health Maintenance Due Date Last Done Comments INFLUENZA VACCINE 02/28/2025 ANNUAL PHYSICAL 05/06/2025 05/06/2024 LIPID PANEL 08/01/2025 08/01/2024, 01/11/2024, 02/03/2021 Annual Gynecologic Pelvic and Breast Exam 04/22/2026 04/21/2025, 04/02/2020 PAP SMEAR 04/21/2028 04/21/2025, 01/06/2023, 04/02/2020 TDAP/TD VACCINES (3 - Td or Tdap) 12/07/2033 12/08/2023, 02/03/2021 HEPATITIS C SCREENING Completed 02/03/2021 HEMOGLOBIN A1C Discontinued 08/01/2024, 2020, 09/24/2020 Pneumococcal Vaccine 0-49 Aged Out No longer eligible based on patient's age to complete this topic Procedures Procedure Name Priority Date/Time Associated Diagnosis Comments GENITAL MYCOPLASMAS HANNA, SWAB Routine 05/01/2025 12:00 AM EDT Vaginal odor NUSWAB VG Routine 05/01/2025 12:00 AM EDT Vaginal odor LIQUID-BASED PAP SMEAR WITH HPV GENOTYPING REGARDLESS OF INTERPRETATION, [facility] (EMMY,COR,MAD) Routine 04/21/2025 6:12 PM EDT Vaginal odor Screening for STDs (sexually transmitted diseases) HEMOGLOBIN A1C Routine 08/01/2024 9:30 AM EST Elevated glucose LIPID PANEL Routine 08/01/2024 9:30 AM EST Mixed hyperlipidemia HEPATITIS C ANTIBODY Routine 02/03/2021 9:23 AM EDT Need for hepatitis C screening test SCANNED - PAP SMEAR 04/02/2020 from Last 3 Months or Most Recently Relevant to Health Maintenance Results * (ABNORMAL) Genital Mycoplasmas HANNA, Swab [...] (AMBULATORY) - 05/04/2025 3:35 AM EDT Test(s) 612613-Gicivpzblk hominis HANNA; 930750-Hpexnmtwqc spp HANNA was developed and its performance characteristics determined by [facility]. It has not been cleared or approved by the Food and Drug Administration. Performed at: 01 - [facility] [id number] Tow Picker: Carol Malloy MD, Phone: [phone] Tyree Song APRN MICROBIOLOGY - GENER AL ORDERABLES Final Result [facility] ([facility] [address] [place] [address], [facility] [address] [place] [address], [place] [phone] * NuSwab Vaginitis (VG) - Swab, Vagina [...] 05/01/2025 05/01/2025 Comment:Swab Release to lei Gross [facility] - 05/04/2025 3:35 AM EDT Test(s) 993738- Atopobium vaginae; 730995- BVAB 2; 611018- Megasphaera 1 was developed and its performance characteristics determined by [facility]. It has not been cleared or approved by the Food and Drug Administration. Test(s) 884441-Xmrrsnw albicans, HANNA; 304945-Quysqdf glabrata, HANNA was developed and its performance characteristics determined by [facility]. It has not been cleared or approved by the Food and Drug Administration. Performed at: 01 - [address] [id number] Tow Picker: Carol Malloy MD, Phone: [phone] us Tyree Song COMMERCIAL CREDIT REVIEWER MICROBIOLOGY - GENER AL ORDERABLES Final Result [facility] [address] [place] [address], [facility] [address] [place] [address], * LIQUID-BASED PAP SMEAR WITH HPV GENOTYPING REGARDLESS OF INTERPRETATION (EMMY,COR,MAD) (04/21/2025 6:12 PM EDT) Reference Lab Report FINAL EXCEPTIONAL STUDENT EDUCATION TEACHER CYTOLOGY REPORT ---- DIAGNOSIS: Negative for intraepithelial [...] results can occur. ThinPrep Pap imagined by [employer] (AI assisted system). Screened by KATHY WASHINGTON (ASCP) Neisseria Gonorrhoeae: Negative Chlamydia Trachomatis: Negative The Aptima Combo 2 assay is a target amplification nucleic acid probe test that utilizes target capture for the in vitro qualitative detection and differentiation of ribosomal RNA from Chlamydia trachomatis and Neisseria gonorrhoeae to aid in the diagnosis of chlamydial and gonococcal disease using the [employer] system. MDL ATOPOBIUM VAGINAE: Negative MDL BVAB2: Negative MDL LAURIE ALBICANS: Negative MDL LAURIE GLABRATA: Negative MDL LAURIE PARAPSILOSIS: Negative MDL LAURIE TROPICALIS: Negative MDL Megasphaera 1: Negative Aptima [...] 6:12 PM EDT 04/21/2025 6:12 PM EDT Kindra Grijalva APRN PATHOLOGY/CYTOLOGY ORDERABLE S Final Result [facility]
[address] [place] [address], [place] [phone] * Hemoglobin A1c (08/01/2024 9:30 AM EST) Hemoglobin A1C 5.20 4.80 - 5.60 % 08/01/2024 6:41 PM EST [facility] Blood Venipuncture / Unknown 08/01/2024 9:30 AM EST 08/01/2024 9:30 AM EST Narrative [facility] - 08/01/2024 6:41 PM EST Hemoglobin A1C Ranges: Increased Risk for Diabetes 5.7% to 6.4% Diabetes >= 6.5% Diabetic Goal < 7.0% us Kalin Yuan MD LAB BLOOD ORDERABLES Final R esult [facility]
[address] [place] [address], [place] [phone] * (ABNORMAL) Lipid Panel (08/01/2024 9:30 AM EST) Total Cholesterol 193 0 - 200 mg/dL 08/01/2024 6:49 PM EST [facility] Triglycerides 96 0 - 150 mg/dL 08/01/2024 6:49 PM EST [facility] HDL Cholesterol 38(L) 40 - 60 mg/dL 08/01/2024 6:49 PM EST [facility] LDL Cholesterol 137(H) 0 - 100 mg/dL 08/01/2024 6:49 PM EST [facility] VLDL Cholesterol 18 5 - 40 mg/dL 08/01/2024 6:49 PM EST [facility] LDL/HDL Ratio 3.57 08/01/2024 6:49 PM EST [facility] Blood Venipuncture / Unknown 08/01/2024 9:30 AM EST 08/01/2024 9:30 AM EST Narrative [facility] - 08/01/2024 6:49 PM EST Cholesterol Reference Ranges (U.S. Department of Health and Human Services ATP III Classifications) Desirable <200 mg/dL Borderline High 200-239 mg/dL High Risk >240 mg/dL Triglyceride Reference Ranges (U.S. Department of Health and Human Services ATP III Classifications) Normal <150 mg/dL Borderline High 150-199 mg/dL High 200-499 mg/dL Very High >500 mg/dL HDL Reference Ranges (U.S. Department of Health and Human Services ATP III Classifications) Low <40 mg/dl (major risk factor for CHD) High >60 mg/dl ('negative' risk factor for CHD) LDL Reference Ranges (U.S. Department of Health and Human Services ATP III Classifications) Optimal <100 mg/dL Near Optimal 100-129 mg/dL Borderline High 130-159 mg/dL High 160-189 mg/dL Very High >189 mg/dL us Kalin Yuan MD LAB BLOOD ORDERABLES Final R esult [facility]
[address] [place] [address], * Hepatitis C Antibody (02/03/2021 9:23 AM EDT) Hepatitis C Ab Non-Reacti ve Non-Reacti ve 02/03/2021 9:16 PM EDT [facility] Blood Venipuncture / Unknown 02/03/2021 9:23 AM EDT 02/03/2021 9:23 AM EDT Narrative [facility] - 02/03/2021 9:16 PM EDT Results may be falsely decreased if patient taking Biotin. us Kalin Yuan MD LAB BLOOD ORDERABLES Final R esult [facility]
[address] [place] [address], [place] [phone] * SCANNED - PAP SMEAR (04/02/2020) Erma Bowers MD CHART REVIEW TABS Final Resul t from Last 3 Months or Most Recently Relevant to Health Maintenance Additional Health Concerns Infection Onset Date Last Indicated Norovirus 2020 2020 Insurance [address] [place] [phone] [facility] [place] Advance Directives * CPR (Attempt to Resuscitate) (Latest Code Status on File) Date Activated Date Inactivated Comments 04/21/2024 2:15 PM 04/22/2024 9:10 AM Question Answer Comments Code Status (Patient has no pulse and is not breathing): CPR (Attempt to Resuscitate) Medical Interventions (Patie nt has pulse or is breathing): Full Support * CPR (Attempt to Resuscitate) Date Activated Date Inactivated Comments 2020 3:40 AM 12/30/2020 3:21 PM Question Answer Comments Code Status (Patient has no pulse and is not breathing): CPR (Attempt to Resuscitate) Medical Interventions (Patie nt has pulse or is breathing): Full Level Of Support Discussed With: Patient * CPR (Attempt to Resuscitate) Date Activated Date Inactivated Comments 09/23/2020 11:23 PM 09/26/2020 3:15 PM Question Answer Comments Code Status (Patient has no pulse and is not breathing): CPR (Attempt to Resuscitate) Medical Interventions (Patie nt has pulse or is breathing): Full * CPR (Attempt to Resuscitate) Date Activated Date Inactivated Comments 03/19/2020 6:42 PM 03/22/2020 5:24 PM Question Answer Comments Code Status (Patient has no pulse and is not breathing): CPR (Attempt to Resuscitate) Medical Interventions (Patie nt has pulse or is breathing): Full * CPR (Attempt to Resuscitate) Date Activated Date Inactivated Comments 03/18/2020 7:23 PM 03/19/2020 6:42 PM Question Answer Comments Code Status (Patient has no pulse and is not breathing): CPR (Attempt to Resuscitate) Medical Interventions (Patie nt has pulse or is breathing): Full Care Teams Mail Distribution Clerk Relationship Specialty Start Date End Date Tushar Pierce APRN [address] [address] PCP - General Family Medicine 09/03/24
--- OUTSIDE RECORDS SUMMARY | 2025-05-11 12:05 | XMS_ITS | Encounter Summary ---
[facility] Address [address] [place] [address] Care Team Providers Care Catering Server Name Role Phone Tushar Pierce APRN Primary Care Provider + Reason for Visit * Reason Onset Date Comments LIANG- MEDICAL CONCERN 04/18/2025 Encounter Details Date Type Department Care Team (Late st Contact Info) Description 04/18/2025 Telephone [facility] [address] [place] [phone] Kindra Liang APRN [address] [facility] [address] [place] [address] LIANG- MEDICAL CONCERN Social History Tobacco Use Types Packs/Day Years [...] Brief Depression Severity Measure Score 0 01/06/2023 [place] Depression Scale Answer Date Recorded [place] Depression Scale Total 9 04/02/2020 The thought [...] 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 Appointment scheduled. * Telephone Encounter - Taylor Mcconnell RN - 04/18/2025 9:27 AM EDT Patient reports she has been using boric acid suppositories and has been helping with vaginal odor but it has now returned. She denies any other symptoms. No changes to soaps, detergents, toilet tissues. No new sexual partners. Will discuss with DUST CONTROL ENGINEER and call back. Patient v/u. * Telephone Encounter - Jessa Purdy RegSched Rep - 04/18/2025 9:12 AM EDT Caller: Estephania Wilkinson Relationship: SELF Best call back number: [phone] What is your medical concern? POSS BV FLAIR UP, VAGINAL ODOR Is your provider already aware of this issue? PT HAS HAD BV IN THE PAST Have you been treated for this issue? YES PT WAS UNSURE IF SHE COULD HAVE SOMETHING CALLED IN OR IF SHE NEEDED TO BE SEEN. OFFICE ADV TO SENDTE documented in this encounter Plan of Treatment Upcoming Encounters Date Type Department Care Team (Late st Contact Info) Description 06/12/2025 1:15 PM EST Office Visit [facility] [address] [facility] [address] [place] [address] Tyree Song, PILE HEADER [address] [facility] [address] [place] [address] 07/02/2025 9:30 AM EST Office Visit [facility] [address] [facility] [address] [place] [phone] Tushar Pierce APRN [address] [facility] [address] [place] [address] documented as of this encounter Visit Diagnoses Not on filedocumented in this encounter Additional Health Concerns Infection Onset Date Last Indicated Resolved Time Norovirus 2020 2020 documented as of this encounter Care Teams Catering Server Relationship Specialty Start Date End Date Tushar Pierce APRN [address] [facility] [address] [place], [place] [phone] PCP - General Family Medicine 09/03/24 documented as of this encounter
--- OUTSIDE RECORDS SUMMARY | 2025-05-11 12:05 | XMS_ITS | Clinical Summary ---
Author Organization [facility] Address [address] [place] [address] Phone Care Team Providers Care Sash Clamp Operator Name Role Phone W, Jodee Unavailable Unavailable Conditions or Problems Problem Name Problem Code Onset Date Status Entry Date Provider Comment Standard Description Annotate Diarrhea 67293079 (SNOMED CT) 09/28 Active 09/28 Jodee W Diarrhea Other obesity due to excess calories 361553536 (SNOMED CT) 09/28 Active 09/28 Rosalia Edelen Simple obesity Diarrhea, antibiotic associated 161493240 (SNOMED CT) 09/28 Inactive 09/28 Rosalia Edelen Antibiotic-asso ciated diarrhea Kidney stone 98034448 (SNOMED CT) 09/28 Active 09/28 Rosalia Edelen Kidney stone E coli infection 92322647 (SNOMED CT) 09/28 Active 09/28 Rosalia Edelen Infection caused by Escherichia coli E. Coli sepsis A41.51 (ICD-10-CM ) 09/25 Active 09/25 Jodee W Sepsis due to Escherichia coli [E. coli] Acute Pyelonephriti s 92091537 (SNOMED CT) 09/25 Active 09/25 Jodee W Acute pyelonephritis Medications Medication Instructions Start Date Stop Date Generic Name [facility] Provider CEFTRIAXONE SODIUM 2 GM SOLR 2gm IV Q24hrs/ INPAT CEFTRIAXONE SODIUM 54953766926 Selina Clarke RN SERTRALINE HCL 50 MG TABS Take one by mouth daily SERTRALINE HCL 95772995728 Alicia Agustin ONDANSETRON 4 MG TBDP 4 mg, Translingual, 4 Times Daily PRN ONDANSETRON 04120142254 Alicia Agustin MIRENA (52 MG) 20 MCG/24HR INTRAUTERINE INTRAUTERINE DEVICE 1 each, Intrauterine, Once LEVONORGESTREL 89078427522 Alicia Agustin IBUPROFEN 600 MG TABS Q6H/PRN IBUPROFEN 74076276294 Alicia Agustin DOCUSATE SODIUM 100 MG CAPS Take by mouth twice a day DOCUSATE SODIUM 80932837717 Alicia Agustin ALBUTEROL SULFATE HFA 108 (90 Base) MCG/ACT AERS 2 puffs, Inhalation, Every 4 Hours PRN ALBUTEROL SULFATE 00759508781 Alicia Agustin PROMETHAZINE HCL 12.5 MG TABS Q6H/PRN PROMETHAZINE HCL 99824347102 Alicia Agustin OXYCODONE-ACETA MINOPHEN 5-325 MG TABS Q4H/PRN OXYCODONE-ACETAMI NOPHEN 41464730427 Alicia Agustin CEFTRIAXONE SODIUM 2 GM SOLR 2gm IV Q24hrs/ INPAT CEFTRIAXONE SODIUM 22871982731 Julia Khan RN Medications Administered No information available. Allergies, Adverse Reactions, Alerts Allergy Name Reaction Description Start Date Severity Statu s Provider CLARITHROMYCIN Moderate Active Zeynep any Agustin Results Date Name Value Unit Range Flag Description Clinical Lists Update: Prelo ad HGBA1C 5.30 % Hemoglobin A1c/Hemoglobin, total in Blood - % Lab Report: CBC WITH AUTO DI FFERENTIAL ZZ-GE-unk 0.0 /100 WBC 0.0-0.2 GE use only - fo r LinkLogic import when terms are not otherwise specified IMMATUREGRAN 0.20 10*3/MM3 0.00-0.05 H Immature granulocytes [#/volume] in Blood BASO# 0.07 10*3/mm3 0.00-0.20 Basophils [#/vol ume] in Blood EOS ABSLT 0.13 10*3/uL 0.00-0.40 Eosinophi ls [#/volume] in Blood MONOSCT AUTO 0.52 10*3/uL 0.10-0.90 Monocy mery [#/volume] in Blood by Automated count LYMPHCT AUTO 2.39 10*3/mm3 0.70-3.10 Lymph ocytes [#/volume] in Blood by Automated count ABS NEUTROPH 4.71 10*3/uL 1.70-7.00 Neutro phils [#/volume] in Blood IMM GRANU % 2.5 % 0.0-0.5 H Immature granulocytes/100 leukocytes in Blood % EOS AUTO 1.6 % 0.3-6.2 Eosinophil s/100 leukocytes in Blood by Automated count MONOCYTE % 6.5 % 5.0-12.0 Monocytes /100 leukocytes in Blood by Automated count LYMPHOCY BF 29.8 % 19.6-45.3 lymphoc ytes as percent of body fluid leukocytes NEUTROP BF 58.7 % 42.7-76.0 Neutroph ils/100 leukocytes in Body fluid PLATELETS 391 10*3/mm3 140-450 Platelets [#/volume] in Blood by Automated count RDW_ 12.1 12.3-15.4 L RDW, no uni ts MCHC 31.3 G/DL 31.5-35.7 L MCHC [Mass/ volume] by Automated count MCH 29.4 pg 26.6-33.0 MCH [Entiti c mass] by Automated count MCV 94.1 fL 79.0-97.0 MCV [Entiti c volume] by Automated count HCT 40.0 % 34.0-46.6 Hematocrit [Volume Fraction] of Blood by Automated count HGB 12.5 g/dL 12.0-15.9 Hemoglobin [Mass/volume] in Blood RBC 4.25 10*6/mm3 3.77-5.28 Erythrocyt es [#/volume] in Blood by Automated count WBC 8.02 10*3/mm3 3.40-10.8 0 Leukocytes [#/volume] in Blood by Automated count Lab Report: SEDIMENTATION RA TE ESR 59 mm/h 0-20 H Erythrocyte sedimentation rate by Westergren method Lab Report: C-REACTIVE PROTE IN CRP 5.10 mg/dL 0.00-0.50 H C reactive protein [Mass/volume] in Serum or Plasma Lab Report: COMPREHENSIVE ME TABOLIC PANEL ANIONGAP 10.0 mmol/L 5.0-15.0 anion gap, serum BUN/CREAT 19.4 7.0-25.0 Urea nitrogen/Creatinine [Mass Ratio] in Serum or Plasma GFRC 102 mL/min/1. 73m2 >60 Glomerular Filtration Rate Calculation BILI TOTAL 0.2 mg/dL 0.0-1.2 Bilirubin. total [Mass/volume] in Serum or Plasma ALK PHOS 104 U/L 39-117 Alkaline kelsey sphatase [Enzymatic activity/volume] in Blood SGOT (AST) 26 U/L 1-32 Aspartate aminotransferase [Enzymatic activity/volume] in Serum or Plasma SGPT (ALT) 24 U/L 1-33 Alanine aminotransferase [Enzymatic activity/volume] in Serum or Plasma ALBUMIN 4.00 g/dL 3.50-5.20 Albumin [Mass/volume] in Serum or Plasma PROTEIN, TOT 7.3 g/dL 6.0-8.5 Protein [Mass/volume] in Serum or Plasma CALCIUM 9.3 mg/dL 8.6-10.5 Calcium [Moles/volume] in Serum or Plasma CO2 30.0 mmol/L 22.0-29.0 H Carbon diox annmarie, total [Moles/volume] in Venous blood CHLORIDE 102 mmol/L 98-107 Chloride [Moles/volume] in Serum or Plasma POTASSIUM 4.3 mmol/L 3.5-5.2 Potassium [Moles/volume] in Serum or Plasma SODIUM 142 mmol/L 136-145 Sodium [Moles/volume] in Serum or Plasma CREATININE 0.67 mg/dL 0.57-1.00 Creatini ne [Mass/volume] in Serum or Plasma BUN 13 mg/dL 6-20 Urea nitrogen [Mass/volume] in Serum or Plasma GLUCOSE SER 93 mg/dL 65-99 Glucose [Mass/volume] in Serum or Plasma Office Visit: 9-HFU MEDS REVIEW Done Documenta tion of current medications (procedure) SMOK STATUS Former smoker Tobacco smoking status Plan of Care Type Date Detail Pending order New Oral Antibio tic Pending order Discontinue IV a ntibiotics Pending order PICC Removal Pending order Weekly labs Pending order Ceftriaxone Patient education Ceftriaxone%20 (Injection)%20(Injectable) Patient education Ceftriaxone%20 (Injection)%20(Injectable) Patient education Ceftriaxone%20 (Injection)%20(Injectable) Patient education Ceftriaxone%20 (Injection)%20(Injectable) Procedures Code Procedure Name Date Entry Date CPT: weekly Weekly labs [id number] Ceftriaxone Vital Signs Date Name Value Unit Description BMI (Body Mass Index) 34.08 kg/m2 Bod y Mass Index (Ratio) Body Temperature 97.8 [degF] temperat ure E&M BP Diastolic 85 mm[Hg] blood pressu re, diastolic BP Systolic 125 mm[Hg] blood pressur e, systolic Heart Rate 70 /min pulse rate Height 65 [in_us] height E&M Respiratory Rate 16 /min respirat ory rate E&M Weight Measured 204.8 [lb_av] weight E& M Weight Measured 204.8 [lb_av] weight E& M Immunizations No information available. Advance Directives Directive Description Start Date NO ADVANCED DIRECTIVES ESTABLISHED AT TH IS TIME
--- OUTSIDE RECORDS SUMMARY | 2025-05-11 12:05 | XMS_ITS | Encounter Summary ---
Author Organization [facility] Address [address] [place] [address] Care Team Providers Care Budget Engineer Name Role Phone Tushar Pierce APRN Primary Care Provider + Encounter Details Date Type Department Care Team (Latest Contact Info) Description 04/21/2025 Travel Social History Tobacco Use Types Packs/Day Years Used Date Smoking Tobacco: Former Cigarettes 0.3 2.6 0 07/31/2002 - 07/31/2004 Passive Smoke Exposure: Past Smokeless Tobacco: Never Comments:Per [place], never Alcohol Use Standard Drinks/Week Comments Never [...] Brief Depression Severity Measure Score 0 01/06/2023 [place] Depression Scale Answer Date Recorded [place] Depression Scale Total 9 04/02/2020 The thought [...] 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 file Not on file documented as of this encounter Plan of Treatment Upcoming Encounters Date Type Department Care Team (Late st Contact Info) Description 06/12/2025 1:15 PM EST Office Visit [facility] OBGYN [address] [facility] [address] [place] [address] Tyree Song, ATHLETIC FIELD CUSTODIAN [address] [facility] [address] [place] [address] 07/02/2025 9:30 AM EST Office Visit [facility] PRIMARY CARE [address] [place] [address] Tushar Pierce APRN [address] [facility] [address] [place] [address] documented as of this encounter Visit Diagnoses Not on filedocumented in this encounter Additional Health Concerns Infection Onset Date Last Indicated Resolved Time Norovirus 2020 2020 documented as of this encounter Care Teams Budget Engineer Relationship Specialty Start Date End Date Tushar Pierce APRN [address] [facility] [address] [place] [address] PCP - General Family Medicine 09/03/24 documented as of this encounter
--- OUTSIDE RECORDS SUMMARY | 2025-05-11 12:05 | XMS_ITS | Encounter Summary ---
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 Encounter Details Date Type Department Care Team (Late st Contact Info) Description 04/30/2025 Telephone [facility] OBGYN [address] [place] [phone] Erma Bowers MD [address] [place] [address] Ureaplasma spp Social History Tobacco Use Types Packs/Day Years Used Date Smoking Tobacco: Former Cigarettes 0.3 2.6 0 07/31/2002 - 07/31/2004 Passive Smoke Exposure: Past Smokeless Tobacco: Never Comments:Per [place], [place] Alcohol Use Standard Drinks/Week Comments Never 0 [...] Brief Depression Severity Measure Score 0 01/06/2023 [place] Depression Scale Answer Date Recorded [place] Depression Scale Total 9 04/02/2020 The thought [...] 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 SHE HAS BEEN DOING BORIC ACID W/O RELIEF. PT IS SCHEDULED ON 05/08 W. [place] TO DISCUSS TUBAL BUT PATIENT IS MISERABLE& WOULD LIKE TO DISCUSS TESTING OF Genital Mycoplasmas AVIVA. documented in this encounter Plan of Treatment Upcoming Encounters Date Type Department Care Team (Late st Contact Info) Description 06/12/2025 1:15 PM EST Office Visit [facility] [address] [facility] [address] [place] [address] Tyree Song, STONE OPERATOR [address] [facility] [address] [place] [address] 07/02/2025 9:30 AM EST Office Visit [facility] PRIMARY CARE [address] [place] [address] Tushar Pierce APRN [address] [facility] [address] [place], [place] [address] documented as of this encounter Visit Diagnoses Not on filedocumented in this encounter Additional Health Concerns Infection Onset Date Last Indicated Resolved Time Norovirus 2020 2020 documented as of this encounter Care Teams Agriculture Intern Relationship Specialty Start Date End Date Tushar Pierce, SANDEE [address] [place], [place] [phone] PCP - General Family Medicine 09/03/24 documented as of this encounter
--- OUTSIDE RECORDS SUMMARY | 2025-05-11 12:05 | XMS_ITS | Encounter Summary ---
[facility] Organization [facility] Address [address] [place] [address] Care Team Providers Care Real Estate Professor Name Role Phone Tushar Pierce APRN Primary Care Provider + Encounter Details Date Type Department Care Team (Late st Contact Info) Description 05/05/2025 Results Follow-Up [facility] OBGYN [address] [facility] [address] [place] [phone] Tyree Song APRN [address] [facility] [address] [place] [address] Social History Tobacco Use Types Packs/Day Years [...] Brief Depression Severity Measure Score 0 01/06/2023 [place] Depression Scale Answer Date Recorded [place] Depression Scale Total 9 04/02/2020 The thought [...] 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 file Not on file documented as of this encounter Plan of Treatment Upcoming Encounters Date Type Department Care Team (Late st Contact Info) Description 06/12/2025 1:15 PM EST Office Visit [facility] OBGYN [address] [place] [phone] Tyree Song, ADVERTISING EXECUTIVE [address] [facility] [address] [place] [address] 07/02/2025 9:30 AM EST Office Visit [facility] PRIMARY CARE [address] [facility] [address] [place] [phone] Tushar Pierce APRN [address] [facility] [address] [place], [place] [phone] documented as of this encounter Visit Diagnoses Not on filedocumented in this encounter Additional Health Concerns Infection Onset Date Last Indicated Resolved Time Norovirus 2020 2020 documented as of this encounter Care Teams Real Estate Professor Relationship Specialty Start Date End Date Stan Tushar SANDEE Espinoza [address] [facility] [address] [place] [address] PCP - General Family Medicine 09/03/24 documented as of this encounter
--- OUTSIDE RECORDS SUMMARY | 2025-05-11 12:05 | XMS_ITS | Encounter Summary ---
Author Organization [facility] Address [address] [place] [address] Care Team Providers Care Produce Buyer Name Role Phone Tushar Pierce APRN Primary Care Provider + Reason for Visit * Reason Comments Med Refill Encounter Details Date Type Department Care Team (Late st Contact Info) Description 04/10/2024 Refill [facility] OBGYN [address] [place] [phone] Kindra Grijalva CONVEYOR MONITOR [address] [facility] [address] [place] [address] 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 Social History Tobacco Use Types Packs/Day Years Used Date Smoking Tobacco: Former Cigarettes 0.3 2 0 07/31/2002 - 07/31/2004 Smokeless Tobacco: Never Comments:Per [place], never Alcohol Use Standard Drinks/Week Comments Never 0 (1 standard drink = 0.6 oz pur e alcohol) AUDIT-C Answer Date Recorded Q1: How often do you have a drink containing alc ohol? Never 01/06/2021 Average Number of Drinks Not on file 021 Frequency of Binge Drinking Not on file 03/2021 PHQ-2 Answer Date Recorded Retired PHQ-9: Brief Depression Severity Measure Score 0 01/06/2023 [place] Depression Scale Answer Date Recorded [place] Depression Scale Total 9 04/02/2020 The thought of harming myself has occurred to me . Never 04/02/2020 Abuse Screen Answer Date Recorded Unsafe at Home or Work/School Not on file Feels Threatened by Someone? Not on file 03/2023 Does Anyone Keep You from Co ntacting Others or Doint Things Outside the Home? Not on file 05/08/2023 Physical Sign of Abuse Present Not on file 1 Housing Stability Answer Date Recorded Current Living Arrangements Not on file 03/2023 Potentially Unsafe Housing Conditions Not on suzan e 05/08/2023 Disabilities Answer Date Recorded Concentrating, Remembering, or Making Decisions Difficulty Not on file 05/08/2023 Doing Errands Independently Difficulty Not on fi le 05/08/2023 PHQ-2 Answer Date Recorded Retired PHQ-9: Brief Depression Severity Measure Score 0 01/12/2024 Comments No Sex and Gender Information Value Date Recorded Sex Assigned at Female 01/05/2025 8:36 PM EDT Legal Sex Female 12:10 PM EDT Gender Identity Not on file Sexual Orientation Straight 01/05/2025 8: 36 PM EDT 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 Not on file Not on file documented as of this encounter Miscellaneous Notes * Telephone Encounter - Tamia Leal MA - 04/11/2024 8:42 AM EDT Denied-pt does not need another rx and did not keep her f/u appt documented in this encounter Plan of Treatment Upcoming Encounters Date Type Department Care Team (Late st Contact Info) Description 06/12/2025 1:15 PM EST Office Visit [facility] OBGYN [address] [facility] [address] [place], [place] [phone] Tyree Song, SANDEE [address] [facility] [address] [place] [address] 07/02/2025 9:30 AM EST Office Visit [facility] PRIMARY CARE [address] [place] [address] Tushar Pierce, CONVEYOR MONITOR [address] [facility] [address] [place], [place] [phone] documented as of this encounter Visit Diagnoses Diagnosis 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
--- OUTSIDE RECORDS SUMMARY | 2025-05-11 12:05 | XMS_ITS | Encounter Summary ---
Author Organization [facility] Address [address] [place] [address] Care Team Providers Care Mental Health Professional Name Role Phone Tushar Pierce APRN Primary Care Provider + Encounter Details Date Type Department Care Team (Late st Contact Info) Description 04/25/2025 Results Follow-Up [facility] OBGYN [address] [place] [address] Kindra Grijalva APRN [address] [facility] [address] [place] [address] Social History Tobacco Use Types Packs/Day Years [...] Brief Depression Severity Measure Score 0 01/06/2023 [place] Depression Scale Answer Date Recorded [place] Depression Scale Total 9 04/02/2020 The thought [...] 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 file Not on file documented as of this encounter Plan of Treatment Upcoming Encounters Date Type Department Care Team (Late st Contact Info) Description 06/12/2025 1:15 PM EST Office Visit [facility] OBGYN [address] [facility] [address] [place] [phone] Tyree Song, HEALTH AND SAFETY ADVISOR [address] [facility] [address] [place], [place] [phone] 07/02/2025 9:30 AM EST Office Visit [facility] PRIMARY CARE [address] [facility] [address] [place] [phone] Tushar Pierce APRN 120 [facility] [address] [place], [place] [phone] documented as of this encounter Visit Diagnoses Not on filedocumented in this encounter Additional Health Concerns Infection Onset Date Last Indicated Resolved Time Norovirus 2020 2020 documented as of this encounter Care Teams Mental Health Professional Relationship Specialty Start Date End Date Tushar Pierce APRN [address] [facility] [address] [place] [address] PCP - General Family Medicine 09/03/24 documented as of this encounter
--- OUTSIDE RECORDS SUMMARY | 2025-05-11 12:05 | XMS_ITS | Encounter Summary ---
Author Organization [facility] Address [address] [place] [address] Care Team Providers Care Ed Educational Aide Name Role Phone Tushar Pierce APRN Primary Care Provider + Encounter Details Date Type Department Care Team (Latest Contact Info) Description 05/01/2025 Travel Social History Tobacco Use Types Packs/Day Years Used Date Smoking Tobacco: Former Cigarettes 0.3 2.6 0 07/31/2002 - 07/31/2004 Passive Smoke Exposure: Past Smokeless Tobacco: Never Comments:Per [place], never Alcohol Use Standard Drinks/Week Comments Never [...] Brief Depression Severity Measure Score 0 01/06/2023 [place] Depression Scale Answer Date Recorded [place] Depression Scale Total 9 04/02/2020 The thought [...] 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 Not on file documented as of this encounter Plan of Treatment Upcoming Encounters Date Type Department Care Team (Late st Contact Info) Description 06/12/2025 1:15 PM EST Office Visit [facility] OBGYN [address] [facility] [address] [place] [address] Tyree Song, INVESTMENT OFFICER [address] [facility] [address] [place] [address] 07/02/2025 9:30 AM EST Office Visit [facility] PRIMARY CARE [address] [place] [address] Tushar Pierce APRN 120 [facility] [address] [place] [address] documented as of this encounter Visit Diagnoses Not on filedocumented in this encounter Additional Health Concerns Infection Onset Date Last Indicated Resolved Time Norovirus 2020 2020 documented as of this encounter Care Teams Ed Educational Aide Relationship Specialty Start Date End Date Tushar Pierce APRN [address] [facility] [address] [place] [address] PCP - General Family Medicine 09/03/24 documented as of this encounter
[2025-05-11] MEDS: DEXAMETHASONE 4MG/ML 1ML VIAL 10 MG IM (12:17)
[2025-05-11 12:31] VITALS: BP 129/77; PULSE 81; RESP 15; TEMP 36.9; O2SAT 99
== END 2025-05-11 12:32 | disposition home or self-care (01) ==
PROVIDERS: Emergency Provider Student in an Organized Health Care Education/Training Program; PCP Nurse Practitioner Family
DX: L23.7 Allergic contact dermatitis due to plants, except food (principal); W60.XXXA Contact with nonvenomous plant thorns and spines and sharp leaves, initial encounter
CPT/HCPCS: 96372; 99282; 99283; J1100